=== PATIENT | female | born 1975 | race Caucasian/White ===

== ENCOUNTER 2016-10-29 15:28 | Emergency (ER) | payer SELFPAY ==
[~2016-10-29] VITALS: Ht 157.5 cm; Wt 89.0 kg
[2016-10-29 15:32] VITALS: Ht 157.5 cm; Wt 89.0 kg
== END 2016-10-29 18:06 | disposition left against medical advice (07) ==
LOC: FTE 15:28
DX: Z53.21 Procedure and treatment not carried out due to patient leaving prior to being seen by health care provider (principal)